=== PATIENT | female | born 1935 | race Caucasian/White ===

== ENCOUNTER 2023-01-25 12:55 | Outpatient (CLI) | payer MEDICARE ==
[~2023-01-25 12:55] MED LIST: BARIUM SULFATE 340 ML SUSP.RECON***PROCEDURE AREA ONLY**DONT ENTER PO ONE
== END 2023-01-25 23:59 | disposition home or self-care (01) ==
LOC: RAD 12:55
PROVIDERS: ATTEND Family Medicine
DX: R13.10 Dysphagia, unspecified (principal)
CPT/HCPCS: 74230